=== PATIENT | male | born 1950 | race Caucasian/White ===

== ENCOUNTER 2020-04-01 10:25 | Emergency (ER) | payer MEDICARE, BC ==
--- NOTE | 2020-04-01 10:31 | EDM.PDOC ---
ED HPI GENERAL MEDICAL PROBLEM - General Chief Complaint: Genitourinary Problem Stated Complaint: can not urinate Time Seen by Provider: 04/01/20 10:31 Source of Information: Reports: Patient, RN, RN Notes Reviewed History Limitations: Reports: No Limitations - History of Present Illness INITIAL COMMENTS - FREE TEXT/NARRATIVE: Pt presents to ER with c/o being unable to urinate. Pt reports Hx of enlarged prostate with weak urine stream for a few years. A few days ago the urine became difficult to pass at all and was just a dribble, but then improved a little until today. Now he has not been able to pass his urine at all this morning. Denies fever, chills, N/V, or constipation. Onset: Gradual Duration: Constant, Recurring Location: Reports: Other (Urinary) Quality: Reports: Pressure Severity: Severe Improves with: Reports: None Worsens with: Reports: Other (Inability to urinate) Associated Symptoms: Reports: No Other Symptoms Suprapubic Pain Score (Numeric/FACES): 7 - Related Data Allergies Allergy/AdvReac Type Severity Reaction Status Date / Time Penicillins Allergy Rash Verified 04/01/20 10:45 Sulfa (Sulfonamide Allergy Confusion Verified 04/01/20 10:45 Antibiotics) Home Meds: Home Meds Aspirin [Halfprin] 162 mg PO DAILY 09/04/13 [History] atenoloL [Tenormin] 12.5 mg PO DAILY 09/04/13 [History] hydroCHLOROthiazide [Hydrochlorothiazide] 25 mg PO DAILY 04/01/20 [History] Past Medical History Genitourinary History: Reports: BPH, Prostate Disorder Social & Family History - Family History Family Medical History: Noncontributory - Tobacco Use Smoking Status *Q: Current Some Day Smoker Tobacco Use Within Last Twelve Months: Cigars (sometimes) - Alcohol Use Alcohol Use History: Yes Alcohol Use Frequency: Socially - Recreational Drug Use Recreational Drug Use: No - Living Situation & Occupation 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 ED EXAM, RENAL/ - Physical Exam Exam: See Below Exam Limited By: No Limitations General Appearance: Alert, WD/WN, No Apparent Distress Respiratory/Chest: No Respiratory Distress Cardiovascular: Regular Rate, Rhythm GI/Abdominal: Normal Bowel Sounds, Soft, Tender (suprapubic). No: Guarding, Rigid (Male) Exam: Suprapubic Fullness Rectal (Males) Exam: Deferred Back Exam: No: CVA Tenderness (L), CVA Tenderness (R) Extremities: Normal Inspection, No Pedal Edema Neurological: Alert, Oriented, No Motor/Sensory Deficits Psychiatric: Normal Mood Skin Exam: Warm, Dry, Intact, Normal Color, No Rash Course - Vital Signs Last Recorded V/S: Last Vital Signs Temp 97.8 F 04/01/20 10:38 Pulse 78 04/01/20 10:38 Resp 16 04/01/20 10:38 BP 179/102 H 04/01/20 10:38 Pulse Ox 98 04/01/20 10:38 - Orders/Labs/Meds Orders: Active Orders 24 hr Category Date Time Status Bladder Scan [RC] ASDIRECTED Care 04/01/20 10:44 Active Insert Murray Catheter [Insert Urinary Catheter] [OM.PC] Care 04/01/20 10:32 Ordered Stat Urinary Catheter Assessment [RC] ASDIRECTED Care 04/01/20 10:33 Active Labs: Laboratory Tests 04/01/20 04/01/20 04/01/20 Range/Units 11:10 11:35 11:35 WBC 9.6 (5.0-10.0) 10^3/uL RBC 4.39 L (4.6-6.2) 10^6/uL Hgb 14.5 (14.0-18.0) g/dL Hct 42.5 (40.0-54.0) % MCV 96.8 (80-100) fL MCH 33.0 (27.0-34.0) pg MCHC 34.1 (33.0-35.0) g/dL Plt Count 183 (150-450) 10^3/uL Neut % (Auto) 73.3 (42.2-75.2) % Lymph % (Auto) 11.1 L (20.5-50.1) % Stanley % (Auto) 10.2 H (2-8) % Eos % (Auto) 5.1 H (1.0-3.0) % Baso % (Auto) 0.3 (0.0-1.0) % Sodium 144 (136-145) mmol/L Potassium 4.8 (3.5-5.1) mmol/L Chloride 108 H (98-107) mmol/L Carbon Dioxide 29 (21-32) mmol/L Anion Gap 11.8 (7-13) mEq/L BUN 32 H (7-18) mg/dL Creatinine 1.39 H (0.70-1.30) mg/dL Est Cr Clr Drug Dosing 48.53 mL/min Estimated GFR (MDRD) 51 Glucose 97 (74-99) mg/dL Calcium 9.4 (8.5-10.1) mg/dL Urine Color Yellow (YELLOW) Urine Appearance Slightly cloudy (CLEAR) Urine pH 5.0 (5.0-9.0) Ur Specific [place] >= 1.030 (1.005-1.030) Urine Protein 30 H (NEGATIVE) Urine Glucose (UA) Negative (NEGATIVE) Urine Ketones Negative (NEGATIVE) Urine Occult Blood Moderate H (NEGATIVE) Urine Nitrite Negative (NEGATIVE) Urine Bilirubin Negative (NEGATIVE) Urine Urobilinogen 0.2 (0.2-1.0) mg/dL Ur Leukocyte Esterase Negative (NEGATIVE) Urine RBC 75-100 H /HPF Urine WBC 0-5 (0-5/HPF) /HPF Ur Epithelial Cells Rare (NOT SEEN) /HPF Amorphous Sediment Rare (NOT SEEN) /HPF Urine Bacteria Rare (0-FEW/HPF) /HPF Urine Mucus Rare (NOT SEEN) /LPF Meds: Medications Discontinued Medications Generic Name Dose Route Start Last Admin Trade Name Freq PRN Reason Stop Dose Admin Lidocaine HCl 10 ml 04/01/20 10:33 04/01/20 11:00 Xylocaine 2% Jelly MUCMEM 04/01/20 10:34 10 ml ONETIME ONE Administration Tamsulosin HCl 0.4 mg 04/01/20 10:45 04/01/20 10:59 Flomax PO 04/01/20 10:46 0.4 mg ONETIME ONE Administration - Re-Assessments/Exams Free Text/Narrative Re-Assessment/Exam: 04/01/20 11:[address] Cardozo, pt's PCP to discuss the pt's case. Dr. Cardozo is aware of the exam and lab findings in ER, treatment with Flomax, and of the Murray catheter. Dr. Cardozo agrees to f/u with the pt and initiate a referral to urology for the pt. Departure - Departure Time of Disposition: 12:04 Disposition: Home, Self-Care 01 Condition: Good Clinical Impression: Acute urinary retention, Dehydration - Discharge Information *PRESCRIPTION DRUG MONITORING PROGRAM REVIEWED*: Not Applicable *COPY OF PRESCRIPTION DRUG MONITORING REPORT IN PATIENT EDWINA: Not Applicable Instructions: Indwelling Urinary Catheter Care, Adult, Acute Urinary Retention, Male, Dehydration, Adult Forms: ED Department Discharge Additional Instructions: Rx: Flomax 0.4mg Call Dr. Cardozo's office today to schedule a follow up appointment and catheter removal, and discuss a urology referral. Sepsis Event Note (ED) - Focused Exam Vital Signs: Vital Signs Temp Pulse Resp BP Pulse Ox 04/01/20 10:38 97.8 F 78 16 179/102 H 98 - My Orders Last 24 Hours: My Active Orders 04/01/20 10:32 Insert Murray Catheter [Insert Urinary Catheter] [OM.PC] Stat 04/01/20 10:33 Urinary Catheter Assessment [RC] ASDIRECTED 04/01/20 10:44 Bladder Scan [RC] ASDIRECTED - Assessment/Plan Last 24 Hours: My Active Orders 04/01/20 10:32 Insert Murray Catheter [Insert Urinary Catheter] [OM.PC] Stat 04/01/20 10:33 Urinary Catheter Assessment [RC] ASDIRECTED 04/01/20 10:44 Bladder Scan [RC] ASDIRECTED
[2020-04-01] MEDS ORDERED: Lidocaine 2% Jelly 10 ML Urojet MUCMEM ONE (10:33)
[2020-04-01] MEDS ORDERED: Tamsulosin 0.4 MG Cap.ER PO ONE (10:45)
[2020-04-01 11:56] LABS: ANION GAP 11.8 mEq/L (7-13)
== END 2020-04-01 12:20 | disposition home or self-care (01) ==
LOC: DL.ED 10:25
DX: N40.1 Benign prostatic hyperplasia with lower urinary tract symptoms (principal); R33.8 Other retention of urine; E86.0 Dehydration; F17.290 Nicotine dependence, other tobacco product, uncomplicated; Z88.2 Allergy status to sulfonamides; Z88.0 Allergy status to penicillin; Z79.82 Long term (current) use of aspirin; Z79.899 Other long term (current) drug therapy
CPT/HCPCS: 36415; 51702; 80048; 81001; 85025; 99283; A9270

== ENCOUNTER 2020-04-04 00:19 | Emergency (ER) | payer MEDICARE, BC ==
--- NOTE | 2020-04-04 00:52 | EDM.PDOC ---
ED HPI GENERAL MEDICAL PROBLEM - General Stated Complaint: CATHETER PLUGGED Time Seen by Provider: 04/04/20 00:45 Source of Information: Reports: Patient History Limitations: Reports: No Limitations - History of Present Illness INITIAL COMMENTS - FREE TEXT/NARRATIVE: This 69 yo male patient reports to the ED due to his urinary catheter becoming plugged and increased pain/pressure. The patient reports his catheter was placed 2 days ago and he saw the urologist today. Onset: Today Duration: Minutes:, Constant Location: Reports: Abdomen Quality: Reports: Ache, Dull Severity: Moderate Improves with: Reports: None Worsens with: Reports: None Context: Reports: Other Associated Symptoms: Reports: No Other Symptoms Groin Pain Score (Numeric/FACES): 8 - Related Data Allergies Allergy/AdvReac Type Severity Reaction Status Date / Time Penicillins Allergy Rash Verified 04/04/20 00:26 Sulfa (Sulfonamide Allergy Confusion Verified 04/04/20 00:26 Antibiotics) Home Meds: Home Meds Aspirin [Halfprin] 325 mg PO DAILY 09/04/13 [History] atenoloL [Tenormin] 50 mg PO DAILY 09/04/13 [History] hydroCHLOROthiazide [Hydrochlorothiazide] 25 mg PO DAILY 04/01/20 [History] Tamsulosin HCl 0.4 mg PO DAILY 04/04/20 [History] lisinopriL [Prinivil] 40 mg PO DAILY 04/04/20 [History] Past Medical History HEENT History: Reports: Hard of Hearing, Impaired Vision Cardiovascular History: Reports: High Cholesterol, Hypertension Genitourinary History: Reports: BPH, Prostate Disorder - Past Surgical History GI Surgical History: Reports: Appendectomy Musculoskeletal Surgical History: Reports: Hip Replacement Social & Family History - Family History Family Medical History: Noncontributory - Tobacco Use Smoking Status *Q: Never Smoker - Caffeine Use Caffeine Use: Reports: None - Recreational Drug Use Recreational Drug Use: No - Living Situation & Occupation 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 ED EXAM, RENAL/ - Physical Exam Exam: See Below Exam Limited By: No Limitations General Appearance: Alert, WD/WN, No Apparent Distress Eye Exam: Bilateral Eye: EOMI, Normal Inspection, PERRL Ears: Normal External Exam, Normal Canal, Hearing Grossly Normal, Normal TMs Nose: Normal Inspection, Normal Mucosa, No Blood Throat/Mouth: Normal Inspection, Normal Lips, Normal Teeth, Normal Gums, Normal Oropharynx, Normal Voice, No Airway Compromise Head: Atraumatic, Normocephalic Neck: Normal Inspection, Supple, Non-Tender, Full Range of Motion Respiratory/Chest: No Respiratory Distress, Lungs Clear, Normal Breath Sounds, No Accessory Muscle Use, Chest Non-Tender Cardiovascular: Normal Peripheral Pulses, Regular Rate, Rhythm, No Edema, No Gallop, No JVD, No Murmur, No Rub GI/Abdominal: Normal Bowel Sounds, Soft, Non-Tender, No Organomegaly, No Distention, No Abnormal Bruit, No Mass (Male) Exam: Deferred Rectal (Males) Exam: Deferred Back Exam: Normal Inspection, Full Range of Motion, NT Extremities: Normal Inspection, Normal Range of Motion, Non-Tender, Normal Capillary Refill, No Pedal Edema Neurological: Alert, Oriented, CN II-XII Intact, Normal Cognition, Normal Gait, Normal Reflexes, No Motor/Sensory Deficits Psychiatric: Normal Affect, Normal Mood Skin Exam: Warm, Dry, Intact, Normal Color, No Rash Lymphatic: No Adenopathy Course - Vital Signs Last Recorded V/S: Last Vital Signs Temp 35.8 C L 04/04/20 00:22 Pulse 64 04/04/20 00:22 Resp 18 04/04/20 00:22 BP 164/88 H 04/04/20 00:22 Pulse Ox 100 04/04/20 00:22 Departure - Departure Time of Disposition: 00:50 Disposition: Home, Self-Care 01 Condition: Fair Clinical Impression: Obstruction of Murray catheter Qualifiers: Encounter type: initial encounter Qualified Code(s): T83.091A - Other mechanical complication of indwelling urethral catheter, initial encounter - Discharge Information *PRESCRIPTION DRUG MONITORING PROGRAM REVIEWED*: Not Applicable *COPY OF PRESCRIPTION DRUG MONITORING REPORT IN PATIENT EDWINA: Not Applicable Forms: ED Department Discharge Care Plan Goals: The patient was advised of the examination results during the visit. The patient's catheter was flushed with symptom relief. The patient reports he is now feeling much better and ready to go home. If the patient has any additional symptoms or concerns, the patient should either return to the emergency department or visit his primary care facility. Sepsis Event Note (ED) - Evaluation Sepsis Screening Result: No Definite Risk - Focused Exam Vital Signs: Vital Signs Temp Pulse Resp BP Pulse Ox 04/04/20 00:22 35.8 C L 64 18 164/88 H 100
== END 2020-04-04 01:05 | disposition home or self-care (01) ==
LOC: DL.ED 00:19
DX: T83.098A Other mechanical complication of other urinary catheter, initial encounter (principal); N40.0 Benign prostatic hyperplasia without lower urinary tract symptoms; I10 Essential (primary) hypertension; Z79.899 Other long term (current) drug therapy; Z79.82 Long term (current) use of aspirin; Z88.0 Allergy status to penicillin; Z88.2 Allergy status to sulfonamides
CPT/HCPCS: 99282; 99283

== ENCOUNTER 2024-08-30 16:19 | Emergency (ER) | payer MEDICARE, BC ==
[2024-08-30] MEDS ORDERED: Sodium Chloride 0.9% 10 ML Syringe FLUSH PRN (16:26)
[2024-08-30] MEDS: Iopamidol 755 Mg/ML 100 ML Bottle IVPUSH ONE (16:28)
[2024-08-30 16:42] LABS: BASOPHILS PERCENT AUTO 0.7 % (0.0-1.0); HEMATOCRIT 36.3 % (40.0-54.0); HEMOGLOBIN 11.9 g/dL (14.0-18.0); LYMPHOCYTES PERCENT AUTO 18.6 % (20.5-50.1); MEAN CORPUSCULAR HEMOGLOBIN 32.7 pg (27.0-34.0); MEAN CORPUSCULAR HGB CONC 32.8 g/dL (33.0-35.0); MEAN CORPUSCULAR VOLUME 99.7 fL (80-100); NEUTROPHILS PERCENT AUTO 64.7 % (42.2-75.2); PLATELET COUNT,PLT 208 10^3/uL (150-450); RED BLOOD CELL COUNT 3.64 10^6/uL (4.6-6.2)
[2024-08-30 17:00] LABS: INR 2.5 (0.9-1.2); PROTHROMBIN TIME 24.5 SEC (9.0-12.0)
[2024-08-30 17:02] LABS: ALANINE AMINOTRANSFERASE,ALT 20 U/L (16-63); ALBUMIN 3.6 g/dL (3.4-5.0); ALKALINE PHOSPHATASE 114 U/L (46-116); ANION GAP 17.6 mEq/L (7-13); ASPARTATE AMNIOTRANSFERASE,AST 24 U/L (15-37); BILIRUBIN TOTAL 0.4 mg/dL (0.2-1.0); BLOOD UREA NITROGEN,BUN 38 mg/dL (7-18); BUN/CREATININE RATIO 22.8 (No establ ref range); C-REACTIVE PROTEIN 0.61 ng/dL (<=0.50); CALCIUM 9.6 mg/dL (8.5-10.1); CARBON DIOXIDE,CO2 24 mmol/L (21-32); CHLORIDE,CL 109 mmol/L (98-107); CREATININE 1.67 mg/dL (0.70-1.30); ESTIMATED GFR 43 mL/min (>=60); GLUCOSE RANDOM 99 mg/dL (70-99); POTASSIUM,K 3.6 mmol/L (3.5-5.1); PROTEIN TOTAL,TP 7.1 g/dL (6.4-8.2); SODIUM,NA 147 mmol/L (136-145)
== END 2024-08-30 18:35 | disposition home or self-care (01) ==
LOC: DL.ED 16:19
DX: G45.9 Transient cerebral ischemic attack, unspecified (principal); I12.9 Hypertensive chronic kidney disease with stage 1 through stage 4 chronic kidney disease, or unspecified chronic kidney disease; N18.9 Chronic kidney disease, unspecified; Z90.49 Acquired absence of other specified parts of digestive tract; Z88.0 Allergy status to penicillin; Z88.2 Allergy status to sulfonamides; Z79.82 Long term (current) use of aspirin; Z79.899 Other long term (current) drug therapy
CPT/HCPCS: 36415; 70450; 70496; 70498; 80053; 82947; 83735; 85025; 85610; 86140; 93005; 93010; 99285; Q9967